=== PATIENT | female | born 1945 | race Caucasian/White ===

== ENCOUNTER 2019-01-18 10:48 | Outpatient (CLI) | payer MEDICARE ==
--- NOTE | 2019-01-18 11:20 | ULT ---
Urinary bladder ultrasound: 01/18/2019 COMPARISON: None HISTORY: 73-year-old female reporting incomplete bladder emptying FINDINGS: Focused ultrasound of the urinary bladder is obtained prior to and following voiding. Bilat eral ureteral jets are noted on prevoid imaging. Urinary bladder volume is 234 cc prevoid and 46 cc post void. IMPRESSION: 46 cc of post void residual.
== END 2019-01-18 10:49 | disposition home or self-care (01) ==
LOC: BICULT 10:48
DX: R33.9 Retention of urine, unspecified (principal)
CPT/HCPCS: 76856

== ENCOUNTER 2023-02-13 04:57 | Inpatient (IN) | payer MEDICARE, OTHER ==
[2023-02-13] MEDS ORDERED: fentaNYL 50 mcg/mL 1 mL Vial ONE ×6 (05:07→14:28)
[2023-02-13 05:27] LABS: #Eosinphils 0.1 thou/uL (0.0-0.7); #Monocytes 0.4 thou/uL (0.11-0.59); #Neutrophils 4.5 thou/uL (1.40-6.50); %Basophils 0.2 % (0.0-1.0); %Eosinophils 1.2 % (0.0-10.0); %Lymphocytes 12.1 % (21.0-51.0); %Monocytes 6.9 % (0.0-10.0); %Neutrophils 78.9 % (42.0-75.0); Hematocrit 42.5 % (36.0-47.0); Hemoglobin 14.3 g/dL (12.0-16.0); Mean Corpuscular HGB CONC 33.6 g/dL (32.0-36.0); Mean Corpuscular Hemoglobin 30.5 pg (27.0-31.0); Mean Corpuscular Volume 90.6 fl (78.0-98.0); Mean Platelet Volume 9.2 fL (7.4-10.4); Platelet Count 153 10x3/uL (130-400); RBC Distribution Width 14.4 % (11.5-14.5); Red Blood Cell (RBC) Count 4.69 mill/uL (4.20-5.40); White Blood Cell (WBC) Count 5.6 10x3/uL (4.8-10.8)
[2023-02-13 05:40] LABS: Prothrombin Time 13.3 sec (12.0-14.7)
[2023-02-13 05:56] LABS: ALT (SGPT) 16 U/L (8-55); AST (SGOT) 26 U/L (5-34); Albumin 4.2 g/dL (3.4-4.8); Alkaline Phosphatase 104 U/L (40-110); Anion Gap 15 mmol/L (10-20); BUN (Urea Nitrogen) 11 mg/dL (9.8-20.1); Bilirubin, Total 1.1 mg/dL (0.2-1.2); Calc. Creatinine Clearance 0 mL/min (70-130); Carbon Dioxide 25 mmol/L (23-31); Chloride 102 mmol/L (98-107); Estimated GFR 76; Globulin 2.9 g/dL (2.4-3.5); Glucose 159 mg/dL (83-110); Potassium 3.3 mmol/L (3.5-5.1); Protein, Total 7.1 g/dL (5.8-8.1); Sodium 139 mmol/L (136-145)
[2023-02-13] MEDS ORDERED: Morphine 4 MG/ML VIAL SLOW IVP PRN (07:09)
[2023-02-13] MEDS ORDERED: Morphine 2 MG/ML VIAL SLOW IVP PRN (07:09)
[2023-02-13] MEDS ORDERED: Ondansetron ODT 4 MG TAB PO PRN (07:09)
[2023-02-13] MEDS ORDERED: Ondansetron PF 4 MG/2 ML Vial IVP PRN (07:09)
[2023-02-13] MEDS ORDERED: Ketorolac Tromethamine 30 MG/ML VIAL IVP SCH (07:15)
[2023-02-13 07:17] VITALS: BMI 33.5
[2023-02-13 08:37] LABS: Lactic Acid 1.6 mmol/L (0.5-2.2)
[2023-02-13] MEDS ORDERED: Acetaminophen 500 MG TAB PO SCH (09:00)
[2023-02-13] MEDS ORDERED: CEFAZOLIN 2 GM in Sodium Chloride 0.9% 100 ML IVPB SCH (09:00)
[2023-02-13] MEDS ORDERED: fentaNYL PF 100 MCG/2 ML SYRINGE ONE (10:45)
[2023-02-13] MEDS ORDERED: Vasopressin 20 UNITS/ML VIAL ONE (10:46)
[2023-02-13] MEDS ORDERED: Norepinephrine 4 MG/4 ML VIAL ONE (10:46)
[2023-02-13] MEDS ORDERED: CEFAZOLIN 2 GM VIAL ONE (10:55)
[2023-02-13] MEDS ORDERED: Sodium Chloride 0.9% 100 ML ONE (10:55)
[2023-02-13] MEDS ORDERED: Midazolam HCl 2 mg/2 ml Vial ONE (11:20)
[2023-02-13] MEDS ORDERED: Rocuronium Bromide 10 MG/ML (10ML VIAL) ONE (11:21)
[2023-02-13] MEDS ORDERED: Ondansetron PF 4 MG/2 ML Vial ONE (11:21)
[2023-02-13] MEDS ORDERED: Esmolol 100 MG/10 ML VIAL ONE (11:21)
[2023-02-13] MEDS ORDERED: NEOSTIGMINE 3 MG/3 ML SYR 3 MG/3 ML SYRINGE ONE (11:21)
[2023-02-13] MEDS ORDERED: PHENYLEPHRINE-NS 100 MCG/ML 10 ML SYRINGE ONE (11:21)
[2023-02-13] MEDS ORDERED: Glycopyrrolate 0.2 MG/ML 5 ML SYRINGE ONE (11:21)
[2023-02-13] MEDS: Famotidine 20 MG TAB PO SCH ×2 (11:23→20:07)
[2023-02-13] MEDS ORDERED: Tranexamic Acid 1,000 MG/10 ML VIAL ONE (11:58)
[2023-02-13] MEDS ORDERED: Vancomycin 1 GM VIAL ONE (13:04)
[2023-02-13] MEDS: Acetaminophen 500 MG TAB PO SCH ×3 (13:32→20:06)
[2023-02-13] MEDS: Potassium Chloride 20 MEQ in Lactated Ringer's 1,000 ML IV SCH ×2 (13:32→16:48)
[2023-02-13] MEDS: Ketorolac Tromethamine 30 MG/ML VIAL IVP SCH ×2 (13:32→16:51)
[2023-02-13] MEDS ORDERED: Promethazine HCl 25 MG/ML VIAL IM PRN (13:52)
[2023-02-13] MEDS ORDERED: Ondansetron HCl/PF 4 MG/2 ML Vial IVP PRN (13:52)
[2023-02-13] MEDS ORDERED: Promethazine HCl 25 MG/ML VIAL ONE (13:55)
[2023-02-13] MEDS ORDERED: TETANUS, DIPHTHERIA TOX,ADULT (TDVAX) 0.5 ML VIAL IM ONE (18:00)
[2023-02-13] MEDS: CEFAZOLIN 2 GM in Sodium Chloride 0.9% 100 ML IVPB SCH (20:05)
[2023-02-14] MEDS: Ketorolac Tromethamine 30 MG/ML VIAL IVP SCH ×4 (01:45→17:00)
[2023-02-14] MEDS: Potassium Chloride 20 MEQ in Lactated Ringer's 1,000 ML IV SCH ×3 (03:01→12:23)
[2023-02-14] MEDS: CEFAZOLIN 2 GM in Sodium Chloride 0.9% 100 ML IVPB SCH (04:11)
[2023-02-14 05:05] LABS: #Monocytes 0.6 thou/uL (0.11-0.59); #Neutrophils 6.6 thou/uL (1.40-6.50); %Eosinophils 0.1 % (0.0-10.0); %Lymphocytes 5.3 % (21.0-51.0); %Monocytes 8.1 % (0.0-10.0); %Neutrophils 86.2 % (42.0-75.0); Mean Corpuscular HGB CONC 33.4 g/dL (32.0-36.0); Mean Corpuscular Volume 89.8 fl (78.0-98.0); Mean Platelet Volume 9.4 fL (7.4-10.4); Platelet Count 143 10x3/uL (130-400); RBC Distribution Width 14.7 % (11.5-14.5); Red Blood Cell (RBC) Count 3.73 mill/uL (4.20-5.40); White Blood Cell (WBC) Count 7.7 10x3/uL (4.8-10.8)
[2023-02-14 05:10] LABS: Hematocrit 33.5 % (36.0-47.0); Hemoglobin 11.2 g/dL (12.0-16.0)
[2023-02-14 05:41] LABS: ALT (SGPT) 12 U/L (8-55); AST (SGOT) 27 U/L (5-34); Albumin 3.3 g/dL (3.4-4.8); Alkaline Phosphatase 68 U/L (40-110); Anion Gap 8 mmol/L (10-20); BUN (Urea Nitrogen) 12 mg/dL (9.8-20.1); Bilirubin, Total 1.3 mg/dL (0.2-1.2); Calc. Creatinine Clearance 69 mL/min (70-130); Calcium 8.2 mg/dL (7.8-10.44); Carbon Dioxide 29 mmol/L (23-31); Chloride 104 mmol/L (98-107); Estimated GFR 60; Globulin 2.3 g/dL (2.4-3.5); Glucose 147 mg/dL (83-110); Potassium 4.1 mmol/L (3.5-5.1); Protein, Total 5.6 g/dL (5.8-8.1); Sodium 137 mmol/L (136-145)
[2023-02-14] MEDS: Acetaminophen 500 MG TAB PO SCH ×4 (08:48→21:17)
[2023-02-14] MEDS: Famotidine 20 MG TAB PO SCH ×2 (08:48→21:17)
[2023-02-14] MEDS: traMADol HCl 50 MG TAB PO PRN (08:56)
[2023-02-14] MEDS: Aspirin 81 mg Enteric Coated Tablet PO SCH (21:17)
[2023-02-15] MEDS: Ketorolac Tromethamine 30 MG/ML VIAL IVP SCH ×2 (00:15→05:25)
[2023-02-15] MEDS: traMADol HCl 50 MG TAB PO PRN (05:26)
[2023-02-15] MEDS: Famotidine 20 MG TAB PO SCH ×2 (09:21→20:13)
[2023-02-15] MEDS: Acetaminophen 500 MG TAB PO SCH ×4 (09:21→20:13)
[2023-02-15] MEDS: Aspirin 81 mg Enteric Coated Tablet PO SCH ×2 (09:21→20:14)
[2023-02-15] MEDS ORDERED: Ibuprofen 200 MG TAB PO PRN (11:37)
[2023-02-15] MEDS: traMADol HCl 50 MG TAB PO SCH ×2 (13:19→17:40)
[2023-02-15] MEDS: Gabapentin 100 MG CAP PO SCH (20:14)
[2023-02-16] MEDS: traMADol HCl 50 MG TAB PO SCH ×4 (00:27→18:16)
[2023-02-16] MEDS: Acetaminophen 500 MG TAB PO SCH ×4 (09:38→20:24)
[2023-02-16] MEDS: Aspirin 81 mg Enteric Coated Tablet PO SCH (09:38)
[2023-02-16] MEDS: Famotidine 20 MG TAB PO SCH ×2 (09:38→20:24)
[2023-02-16] MEDS: Gabapentin 100 MG CAP PO SCH ×2 (09:38→20:25)
[2023-02-17] MEDS: traMADol HCl 50 MG TAB PO SCH ×4 (06:13→17:48)
[2023-02-17] MEDS ORDERED: Senokot S 8.6-50 MG TAB PO SCH (09:00)
[2023-02-17] MEDS ORDERED: Polyethylene Glycol 3350 17 GM Packet PO SCH (09:00)
[2023-02-17] MEDS: Acetaminophen 500 MG TAB PO SCH ×3 (09:42→17:37)
[2023-02-17] MEDS: Gabapentin 100 MG CAP PO SCH (09:42)
[2023-02-17] MEDS: Famotidine 20 MG TAB PO SCH (09:43)
[2023-02-17 15:50] VITALS: BP 157/75
[2023-02-17 18:25] VITALS: TEMP 98.5
== END 2023-02-17 18:52 | DRG 481 ==
LOC: ERS 04:57 → SURG A 06:17
PROVIDERS: ADMIT Specialist; ATTEND Specialist
PROC: 0QS604Z Reposition Right Upper Femur with Internal Fixation Device, Open Approach (ICD-10-PCS; principal; 2023-02-13)
DX: S72.8X1A Other fracture of right femur, initial encounter for closed fracture (principal); M97.01XA Periprosthetic fracture around internal prosthetic right hip joint, initial encounter; W19.XXXA Unspecified fall, initial encounter; E11.9 Type 2 diabetes mellitus without complications; E66.9 Obesity, unspecified; I44.7 Left bundle-branch block, unspecified; J45.909 Unspecified asthma, uncomplicated; Z98.890 Other specified postprocedural states; Z90.49 Acquired absence of other specified parts of digestive tract; Z90.710 Acquired absence of both cervix and uterus; Y92.9 Unspecified place or not applicable; Z88.5 Allergy status to narcotic agent; Z88.8 Allergy status to other drugs, medicaments and biological substances; Z68.33 Body mass index [BMI] 33.0-33.9, adult
CPT/HCPCS: 36415; 70450; 71045; 72125; 80053; 83605; 85025; 85610; 85730; 86850; 86900; 86901; 93005; 93306; 96374; 96376; C1713; C1776; J1650; J1885; J2250; J2405; J2550; J3010; J3370; J3480; J3490; J7120

== ENCOUNTER 2023-11-25 09:04 | Outpatient (CLI) | payer OTHER | END 2023-11-25 09:05 | disposition home or self-care (01) | LOC: BICMAMMO 09:04 | PROVIDERS: ATTEND Nurse Practitioner Family | DX: Z13.820 Encounter for screening for osteoporosis (principal); M81.0 Age-related osteoporosis without current pathological fracture; M85.88 Other specified disorders of bone density and structure, other site; Z78.0 Asymptomatic menopausal state | CPT/HCPCS: 77080 ==

== ENCOUNTER 2024-05-25 05:15 | Emergency (ER) | payer OTHER ==
[2024-05-25] MEDS ORDERED: Ipratropium/Albuterol 3 ML NEB ONE (05:47)
[2024-05-25] MEDS ORDERED: methylPREDNISolone Sod Succ/PF 125 MG/2 ML VIAL ONE (05:47)
[2024-05-25 06:20] LABS: #Basophils Less than 0.03 10x3/uL (0.0-0.2); #Eosinophils Less than 0.03 10x3/uL (0.0-0.7); %Basophils 0.2 % (0.0-1.0); %Eosinophils 0.2 % (0.0-10.0); %Lymphocytes 8.9 % (21.0-51.0); %Monocytes 7.6 % (0.0-10.0); %Neutrophils 83.1 % (42.0-75.0); Hematocrit 41.7 % (36.0-47.0); Hemoglobin 13.4 g/dL (12.0-16.0); Mean Corpuscular HGB CONC 32.1 g/dL (32.0-36.0); Mean Corpuscular Hemoglobin 29.4 pg (27.0-31.0); Mean Corpuscular Volume 91.4 fL (78.0-98.0); Mean Platelet Volume 9.9 fL (7.4-10.4); Platelet Count 133 10x3/uL (130-400); RBC Distribution Width 14.6 % (11.5-14.5); Red Blood Cell (RBC) Count 4.56 mill/uL (4.20-5.40)
[2024-05-25] MEDS ORDERED: Furosemide 40 MG (4 mL) VIAL ONE (06:32)
[2024-05-25 06:35] LABS: ALT (SGPT) 10 U/L (Less than 34); AST (SGOT) 21 U/L (11-34); Albumin 3.4 g/dL (3.1-4.5); Alkaline Phosphatase 80 U/L (40-110); Anion Gap 14 mmol/L (10-20); BUN (Urea Nitrogen) 13 mg/dL (9.8-20.1); Bilirubin, Total 2.4 mg/dL (0.3-1.2); Calc. Creatinine Clearance 0 mL/min (70-130); Carbon Dioxide 27 mmol/L (23-31); Chloride 109 mmol/L (98-107); Estimated GFR 76; Globulin 3.4 g/dL (2.4-3.5); Glucose 146 mg/dL (83-110); Potassium 4.2 mmol/L (3.5-5.1); Protein, Total 6.8 g/dL (5.8-8.1); Sodium 146 mmol/L (136-145)
[2024-05-25 07:19] LABS: Troponin I Less than 0.010 ng/mL (< 0.028)
[2024-05-25 08:20] LABS: Bacteria/HPF 3+ HPF (None Seen); Bilirubin Negative (Negative); Blood, Urine Negative (Negative); CAUTI Indications for Culture Pelvic or flank pain; Clarity Clear (Clear); Glucose, Urine (Dipstick) Normal (Negative); Ketone, Urine Negative (Negative); Leukocyte Negative Leu/uL (Negative); Nitrite 1+ (Negative); Protein, Urine (Dipstick) Negative (Neg-Trace); RBC/HPF 0-3 HPF (0-3); Specific Gravity, Urine 1.009 (1.002-1.036); Squamous Epithelial None Seen HPF (0-3); Urobilinogen Normal mg/dL (Less than 2); WBC/HPF 0-3 HPF (0-3); pH, Urine 5.5 (5.0-9.0)
[2024-05-25 08:21] LABS: Urine Culture Reflex No No
[2024-05-25] MEDS ORDERED: Amiodarone 200 MG TAB ONE (10:42)
[2024-05-25] MEDS ORDERED: Apixaban 5 MG TAB ONE (10:42)
[2024-05-25] MEDS ORDERED: Carvedilol 6.25 MG TAB ONE (10:42)
[2024-05-25] MEDS ORDERED: Sacubitril 24MG/Valsartan 26 MG TAB PO SCH (11:00)
== END 2024-05-25 12:43 | disposition short-term general hospital (02) ==
LOC: ERS 05:15
DX: R09.02 Hypoxemia (principal); E87.70 Fluid overload, unspecified; J44.89 Other specified chronic obstructive pulmonary disease; E11.9 Type 2 diabetes mellitus without complications; I50.9 Heart failure, unspecified
CPT/HCPCS: 71045; 80053; 81001; 83880; 84484; 85025; 87428; J1940; J2919; 36415; 96374; 96375; J7620